=== PATIENT | male | born 1940 | race Caucasian/White ===

== ENCOUNTER 2017-04-07 20:27 | Inpatient (IN) | payer OTHER ==
[~2017-04-07] VITALS: Ht 180.3 cm; Wt 89.0 kg
[~2017-04-07 20:27] MED LIST: AMLO5TAB4 PO; ASPI81TA28 PO; LOSA50TA6 PO
[2017-04-07 21:50] LABS: BASO % 0.1 %; BASO ABS # 0.01 K/uL (0-0.2); COMPLETE YES; HEMATOCRIT 37.5 % (42-52); IG% 0.2 %; LYMPH % 7.1 %; LYMPH ABS # 0.72 K/uL (1.2-3.4); MEAN CELL VOLUME 93.1 fL (80-100); MEAN CORPUSCULAR HEMOGLOBIN 32.3 pg (25-34); MEAN CORPUSCULAR HGB CONC 34.7 g/dl (32-36); MEAN PLATELET VOLUME 10.2 fL (7.4-10.4); MONO % 4.5 %; NEUT % 88.1 %; PLATELET COUNT 136 K/uL (130-400); RED BLOOD COUNT 4.03 M/uL (4.7-6.1); WHITE BLOOD COUNT 10.15 K/uL (4.8-10.8)
[2017-04-07 21:57] LABS: ALT/SGPT 16 U/L (12-78); BLOOD UREA NITROGEN 11 mg/dl (7-18); BUN/CREATININE RATIO 9.5 (10-20); CALCIUM 8.9 mg/dl (8.5-10.1); CARBON DIOXIDE 25 mmol/L (21-32); CHLORIDE 104 mmol/L (98-107); GLUCOSE 185 mg/dl (70-99); POTASSIUM 3.9 mmol/L (3.5-5.1); SODIUM 135 mmol/L (136-145)
[2017-04-07 22:00] LABS: URINE APPEARANCE CLEAR (CLEAR); URINE BILIRUBIN NEG (NEG); URINE COLOR YELLOW; URINE NITRITE NEG (NEG); URINE SPECIFIC GRAVITY 1.017 (1.000-1.030); UROBILINOGEN NEG (NEG); ZZUR CULT IF INDIC CLEAN CATCH NO
[2017-04-07 22:00] LABS: ALKALINE PHOSPHATASE 52 U/L (45-117); AST/SGOT 10 U/L (15-37)
--- NOTE | 2017-04-07 22:00 | EMERGENCY ROOM VISIT NOTE ---
History Report prepared by Cori: Jose Quinonez Under the Supervision of: Dr. Juan Samuels M.D. First contact with patient: 21:49 Chief Complaint: ABDOMINAL PAIN Stated Complaint: STOMACH PAINS Nursing Triage Summary: Triage note: Patient c/o upper abdominal pain with radiation into ribs. States, "I think I have pancreatitis again." Associates nausea. Denies v/d. "Food doesn't appeal to me." Started last evening, went away but came back today. Left-sided pain under ribs and going into back, dull pain. History of Present Illness The patient is a 76 year old male with a history of pancreatitis who presents to the Emergency Room with complaints of waxing and waning abdominal pain that started yesterday afternoon. He says that the pain worsened before bed last night, and continued into this afternoon. The patient states that the pain has moderated a bit this evening. He notes that the pain is worsened a bit by movement and last night, it was worsened with deep breathing. The patient says that he has pain radiating into his back, and he has been nauseous as well. Currently, he says the back pain is worse than the abdominal pain. He has not had a bowel movement today, and he has had a limited appetite over the past day. The patient notes, "food doesn't appeal to me". He denies any headaches, chest pain, vomiting, fevers, chills, rashes, diarrhea, or recent falls or trauma. The patient says he drinks minimal alcohol. He notes that he has a hiatal hernia. Source of History: patient, family, spouse/significant other Onset: Yesterday afternoon Position: abdomen Timing: waxes/wanes Associated Symptoms: + nausea, + back pain, No fevers, No chills, No headache, No chest pain, No vomiting, No diarrhea, No rash Note: Associated symptoms: Decreased appetite. Denies recent falls or trauma. Review of Systems See HPI for pertinent positives & negatives. A total of 10 systems reviewed and were otherwise negative. Past Medical & Surgical Medical Problems: (1) Hypertension (2) Pancreatitis Old medical records were reviewed. Nurse's notes were reviewed and I agree with. Family History Family history omitted secondary to patient's advanced age. Social History Smoking Status: Never Smoker Alcohol Use: other (minimal) Marital Status: Housing Status: lives with family Occupation Status: retired Current/Historical Medications Scheduled Amlodipine Besylate (Norvasc), 10 MG PO DAILY Aspirin (Aspirin Ec), 81 MG PO DAILY Atorvastatin (Lipitor), 10 MG PO DAILY Losartan Potassium (Cozaar), 1 TAB PO DAILY Ranitidine Hcl (Zantac), 75 MG PO HS Allergies Coded Allergies: Ibuprofen (Verified Adverse Reaction, Unknown, GASTRIC BLEEDING WITH LARGE DOSES, 04/07/17) Physical Exam Vital Signs Date Time Temp Pulse Resp B/P (MAP) Pulse Ox O2 Delivery O2 Flow Rate FiO2 04/08/17 00:40 70 13 94 04/08/17 00:31 174/74 04/08/17 00:25 72 18 94 04/08/17 00:10 68 19 96 04/08/17 00:01 162/87 04/07/17 23:55 69 19 97 04/07/17 23:40 69 13 95 04/07/17 23:31 167/79 04/07/17 23:25 68 19 96 04/07/17 23:10 69 20 96 04/07/17 23:05 66 14 96 04/07/17 23:00 173/84 04/07/17 22:52 70 04/07/17 22:50 68 16 95 04/07/17 22:35 70 19 94 04/07/17 22:30 172/78 04/07/17 22:11 68 18 96 04/07/17 22:00 157/75 04/07/17 21:56 76 20 95 04/07/17 21:36 73 15 94 04/07/17 21:30 153/76 04/07/17 21:21 71 15 95 04/07/17 21:06 74 17 95 04/07/17 21:01 157/77 04/07/17 20:56 74 19 169/76 95 Room Air 04/07/17 20:39 37.0 81 18 111/73 94 Room Air Physical Exam General: Well developed well nourished non ill appearing older male in no acute distress, breathing comfortably on room air. Normal speech HEENT: Normal cephalic atraumatic. Pupils are equal round and reactive to light. Extraocular movements are intact. Oropharynx is pink with moist mucous membranes. No swelling of the mouth lips or tongue. Neck: Supple with a midline trachea. No meningeal signs or stiffness, no JVD or bruits. No Stridor. Chest: Clear to auscultation bilaterally. No wheezes or rhonchi. No increased work of breathing. Heart: regular rate and rhythm. Abdomen: Mildly tender in left upper abdomen. Soft, nondistended without rebound guarding or rigidity. Extremities: No cyanosis clubbing or edema. No calf tenderness or assymetry Spine/Back. Non tender to palpation. No CVA tenderness Skin: Good turgor without rashes. Neurologic exam: Cranial nerves two through 12 are intact. Motor and sensation are intact and symmetrical throughout. Medical Decision & Procedures ER Provider Diagnostic Interpretation: Radiology results as stated below per my review and radiologist interpretation: CT ANGIOGRAPHY OF THE CHEST, PULMONARY EMBOLUS PROTOCOL CLINICAL HISTORY: Left lower chest pain. COMPARISON STUDY: Chest CT August 22, 2013. TECHNIQUE: Following IV administration of 93 mL of Optiray-320, helical axial images of the chest were obtained utilizing the pulmonary embolus protocol. Maximal intensity projections and sagittal and coronal reformats were viewed on an independent 3D workstation. IV contrast was administered without complication. A dose lowering technique was utilized adhering to the principles of ALARA. FINDINGS: No pulmonary emboli are identified. The heart is mildly enlarged. There is extensive coronary artery calcification. There is no pericardial effusion. There is no evidence of thoracic aortic dissection. A small hiatal hernia is present. There is no consolidation to suggest pneumonia. No pneumothorax or pleural effusion is present. Mild peripancreatic infiltration represents acute pancreatitis. This is better depicted on the abdominal CT. IMPRESSION: 1. No pulmonary emboli identified. 2. No acute intrathoracic findings. 3. Mild peripancreatic infiltration consistent with acute pancreatitis which is better depicted on the CT of the abdomen and pelvis. 4. Mild cardiomegaly and extensive coronary artery calcification. Electronically signed by: Phong Wilson M.D. 04/07/2017 11:13 PM Dictated Date/Time: 04/07/2017 11:[address] OF THE ABDOMEN AND PELVIS WITH CONTRAST CLINICAL HISTORY: Left upper quadrant abdominal pain. COMPARISON STUDY: CT of the abdomen and pelvis June 30, 2010 and MRCP July 02, 2010. TECHNIQUE: Following IV administration of 93 mL of Optiray-320, axial images of the abdomen and pelvis were obtained from the lung bases to the proximal femurs. Images were reviewed in the axial, sagittal, and coronal planes. IV contrast was administered without complication. A dose lowering technique was utilized adhering to the principles of ALARA. CT DOSE: 818.51 mGy.cm FINDINGS: The chest will be reported separately. Several subcentimeter hepatic and renal lesions are too small to characterize but likely reflect cysts. These were present on prior study of June 30, 2010. The spleen and adrenal glands are normal. There is no biliary ductal dilatation status post cholecystectomy. There is mild peripancreatic infiltration. No evidence of glandular necrosis is identified. There are no peripancreatic fluid collections. The splenic vein is patent. No pseudoaneurysm is identified on this non-CTA exam. There is no evidence for a bowel obstruction. There is extensive sigmoid diverticulosis without evidence for acute diverticulitis. The prostate is surgically absent. There are no suspicious osseous lesions within visualized skeletal structures. IMPRESSION: 1. Mild peripancreatic infiltration consistent with acute pancreatitis. No peripancreatic fluid collections. No biliary ductal dilatation status post cholecystectomy. 2. Extensive sigmoid diverticulosis without evidence for acute diverticulitis. Electronically signed by: Phong Wilson M.D. 04/07/2017 11:19 PM Dictated Date/Time: 04/07/2017 11:14 PM Laboratory Results 04/07/17 21:15 Red Blood Count 4.03, Mean Corpuscular Volume 93.1, Mean Corpuscular Hemoglobin 32.3, Mean Corpuscular Hemoglobin Concent 34.7, Mean Platelet Volume 10.2, Neutrophils (%) (Auto) 88.1, Lymphocytes (%) (Auto) 7.1, Monocytes (%) (Auto) 4.5, Eosinophils (%) (Auto) 0.0, Basophils (%) (Auto) 0.1, Neutrophils # (Auto) 8.94, Lymphocytes # (Auto) 0.72, Monocytes # (Auto) 0.46, Eosinophils # (Auto) 0.00, Basophils # (Auto) 0.01 04/07/17 21:15 Test 04/07/17 20:58 04/07/17 21:15 04/08/17 00:14 Urine Color YELLOW Urine Appearance CLEAR (CLEAR) Urine pH 6.0 (4.5-7.5) Urine Specific [place] 1.017 (1.000-1.030) Urine Protein TRACE (NEG) Urine Glucose (UA) NEG (NEG) Urine Ketones NEG (NEG) Urine Occult Blood 2+ (NEG) Urine Nitrite NEG (NEG) Urine Bilirubin NEG (NEG) Urine Urobilinogen NEG (NEG) Urine Leukocyte Esterase NEG (NEG) Urine WBC (Auto) 0 /hpf (0-5) Urine RBC (Auto) 5-10 /hpf (0-4) Urine Hyaline Casts (Auto) 0 /lpf (0-5) Urine Epithelial Cells (Auto) 5-10 /lpf (0-5) Urine Bacteria (Auto) NEG (NEG) White Blood Count 10.15 K/uL (4.8-10.8) Red Blood Count 4.03 M/uL (4.7-6.1) Hemoglobin 13.0 g/dL (14.0-18.0) Hematocrit 37.5 % (42-52) Mean Corpuscular Volume 93.1 fL (80-100) Mean Corpuscular Hemoglobin 32.3 pg (25-34) Mean Corpuscular Hemoglobin Concent 34.7 g/dl (32-36) Platelet Count 136 K/uL (130-400) Mean Platelet Volume 10.2 fL (7.4-10.4) Neutrophils (%) (Auto) 88.1 % Lymphocytes (%) (Auto) 7.1 % Monocytes (%) (Auto) 4.5 % Eosinophils (%) (Auto) 0.0 % Basophils (%) (Auto) 0.1 % Neutrophils # (Auto) 8.94 K/uL (1.4-6.5) Lymphocytes # (Auto) 0.72 K/uL (1.2-3.4) Monocytes # (Auto) 0.46 K/uL (0.11-0.59) Eosinophils # (Auto) 0.00 K/uL (0-0.5) Basophils # (Auto) 0.01 K/uL (0-0.2) RDW Standard Deviation 44.8 fL (36.4-46.3) RDW Coefficient of Variation 13.1 % (11.5-14.5) Immature Granulocyte % (Auto) 0.2 % Immature Granulocyte # (Auto) 0.02 K/uL (0.00-0.02) Anion Gap 6.0 mmol/L (3-11) Est Creatinine Clear Calc Drug Dose 60.5 ml/min Estimated GFR () 67.7 Estimated GFR (Non- 58.4 BUN/Creatinine Ratio 9.5 (10-20) Calcium Level 8.9 mg/dl (8.5-10.1) Total Bilirubin 0.8 mg/dl (0.2-1) Aspartate Amino Transf (AST/SGOT) 10 U/L (15-37) Alanine Aminotransferase (ALT/SGPT) 16 U/L (12-78) Alkaline Phosphatase 52 U/L (45-117) Troponin I < 0.015 ng/ml (0-0.045) Total Protein 7.5 gm/dl (6.4-8.2) Albumin 3.7 gm/dl (3.4-5.0) Globulin 3.8 gm/dl (2.5-4.0) Albumin/Globulin Ratio 1.0 (0.9-2) Lipase 247 U/L (73-393) Laboratory studies as stated above per my review. Medications Administered Medications (Trade) Dose Ordered Sig/Madai Route Start Time Stop Time Status Last Admin Dose Admin Sodium Chloride 1,000 ml @ 999 mls/hr Q1H1M STAT IV 04/07/17 23:57 04/08/17 00:57 04/08/17 00:10 999 MLS/HR Sodium Chloride 1,000 ml @ 150 mls/hr Q6H40M ONCE IV 04/07/17 23:57 04/08/17 06:36 04/08/17 00:11 150 MLS/HR Ondansetron HCl (Zofran Inj) 4 mg NOW STAT IV 04/08/17 00:40 04/08/17 00:41 DC 04/08/17 00:48 4 MG Morphine Sulfate (MoRPHine SULFATE INJ) 2 mg NOW STAT IV 04/08/17 00:40 04/08/17 00:41 DC 04/08/17 00:51 2 MG ECG Indication: abdominal pain Rate (beats per minute): 76 Rhythm: normal sinus Findings: 1st degree AV block, no acute ischemic change Comparison ECG Date: compared to June 21 2015, PAC now absent ED Course 2150: Past medical records reviewed. The patient was evaluated in room B7, and a complete history and physical examination were performed. 5: Upon reevaluation, the patient is restin. I discussed the results and treatment plan with the patient. He verbalized agreement of the treatment plan. The patient will be evaluated for further management. 7: Ordered NSS 1000 ml @ 150 mls/hr IV, NSS 1000 ml @ 999 mls/hr IV. 0002: I discussed the patient with Dr. Jessica Duran hematology nurse educator - he will evaluate the patient for further treatment. Medical Decision Differentials include, but are not limited to; shingles, aneurysm, splenic disease, PE, musculoskeletal, kidney disease, colitis. This patient comes in as described above. He was placed on a monitor technician in room B7. He's had been having abdominal pain mostly in the epigastric area towards the left. He has had no trauma. He did have a history of pancreatitis many years ago thought related to gallstones. He is feeling better than he did earlier. It hurts when he breathes. It does go to his back at times. IV access established was given 1 L IV normal saline bolus 150 mL an hour I have V normal saline. He was kept nothing by mouth while in the ER. He has no elevation of white count or fever to suggest infection. He has no significant anemia. He has no acute electrolyte or metabolic abnormalities. His liver functions are normal as his lipase. His CAT scan however does show findings is a with acute pancreatitis. The CAT scan of his chest shows no PE or other abnormalities. There are no other significant abnormality seen on his CAT scan to explain his symptoms. I do think he needs to be admitted for pain management IV hydration and bowel rest. He was given morphine 2 mg IV and Zofran 4 mg IV in the emergency department. I consulted Dr. Peterson to see the patient in the emergency department for further treatment and evaluation. Medication Reconcilliation Current Medication List: was personally reviewed by me Blood Pressure Screening Patient's blood pressure: Normal blood pressure Consults Time Called: 0000 Consulting Physician: Dr. Jessica Duran hematology nurse educator Returned Call: [phone] I discussed the patient with Dr. Jessica Duran hematology nurse educator - he will evaluate the patient for further treatment. Impression Primary Impression: Pancreatitis Additional Impression: Left upper quadrant pain Scribe Attestation The scribe's documentation has been prepared under my direction and personally reviewed by me in its entirety. I confirm that the note above accurately reflects all work, treatment, procedures, and medical decision making performed by me. Departure Information Dispostion Being Evaluated By Hospitalist Prieto Leung MD (PCP) Patient Instructions My [facility] Problem Qualifiers
[2017-04-07 22:01] LABS: MANUAL MICROSCOPIC REQUIRED? NO; REVIEW REQ? NO
[2017-04-07] MEDS ORDERED: OPTIRAY 320 IV PRN (22:30)
[2017-04-07] MEDS ORDERED: ATOR10TA88 PO (22:56)
[2017-04-07] MEDS ORDERED: RANITAB33 PO (22:56)
--- NOTE | 2017-04-07 23:15 | DIAGNOSTIC IMAGING REPORT ---
CT ANGIOGRAPHY OF THE CHEST, PULMONARY EMBOLUS PROTOCOL CLINICAL HISTORY: Left lower chest pain. COMPARISON STUDY: Chest CT August 22, 2013. TECHNIQUE: Following IV administration of 93 mL of Optiray-320, helical axial images of the chest were obtained utilizing the pulmonary embolus protocol. Maximal intensity projections and sagittal and coronal reformats were viewed on an independent 3D workstation. IV contrast was administered without complication. A dose lowering technique was utilized adhering to the principles of ALARA. FINDINGS: No pulmonary emboli are identified. The heart is mildly enlarged. There is extensive coronary artery calcification. There is no pericardial effusion. There is no evidence of thoracic aortic dissection. A small hiatal hernia is present. There is no consolidation to suggest pneumonia. No pneumothorax or pleural effusion is present. Mild peripancreatic infiltration represents acute pancreatitis. This is better depicted on the abdominal CT. IMPRESSION: 1. No pulmonary emboli identified. 2. No acute intrathoracic findings. 3. Mild peripancreatic infiltration consistent with acute pancreatitis which is better depicted on the CT of the abdomen and pelvis. 4. Mild cardiomegaly and extensive coronary artery calcification. Electronically signed by: Phong Wilson M.D. 04/07/2017 11:13 PM Dictated Date/Time: 04/07/2017 11:06 PM
--- NOTE | 2017-04-07 23:21 | DIAGNOSTIC IMAGING REPORT ---
CT OF THE ABDOMEN AND PELVIS WITH CONTRAST CLINICAL HISTORY: Left upper quadrant abdominal pain. COMPARISON STUDY: CT of the abdomen and pelvis June 30, 2010 and MRCP July 02, 2010. TECHNIQUE: Following IV administration of 93 mL of Optiray-320, axial images of the abdomen and pelvis were obtained from the lung bases to the proximal femurs. Images were reviewed in the axial, sagittal, and coronal planes. IV contrast was administered without complication. A dose lowering technique was utilized adhering to the principles of ALARA. CT DOSE: 818.51 mGy.cm FINDINGS: The chest will be reported separately. Several subcentimeter hepatic and renal lesions are too small to characterize but likely reflect cysts. These were present on prior study of June 30, 2010. The spleen and adrenal glands are normal. There is no biliary ductal dilatation status post cholecystectomy. There is mild peripancreatic infiltration. No evidence of glandular necrosis is identified. There are no peripancreatic fluid collections. The splenic vein is patent. No pseudoaneurysm is identified on this non-CTA exam. There is no evidence for a bowel obstruction. There is extensive sigmoid diverticulosis without evidence for acute diverticulitis. The prostate is surgically absent. There are no suspicious osseous lesions within visualized skeletal structures. IMPRESSION: 1. Mild peripancreatic infiltration consistent with acute pancreatitis. No peripancreatic fluid collections. No biliary ductal dilatation status post cholecystectomy. 2. Extensive sigmoid diverticulosis without evidence for acute diverticulitis. Electronically signed by: Phong Wilson M.D. 04/07/2017 11:19 PM Dictated Date/Time: 04/07/2017 11:14 PM
[2017-04-07] MEDS ORDERED: SODIUM CHLORIDE 0.9% 1000ML 1,000 ML IV STA (23:57)
[2017-04-07] MEDS ORDERED: SODIUM CHLORIDE 0.9% 1000ML 1,000 ML IV ONE (23:57)
[2017-04-08] MEDS ORDERED: MoRPHine SULFATE 2 MG/ML CARP IV STA (00:40)
[2017-04-08] MEDS ORDERED: ONDANSETRON INJ 2 MG/ML 2 ML VIAL IV STA (00:40)
[2017-04-08] MEDS ORDERED: TRAMADOL HCL 50 MG TAB PO PRN ×2 (00:45→12:45)
[2017-04-08] MEDS ORDERED: MoRPHine SULFATE 4 MG/ML 1 ML CARP\\VIAL IV PRN (00:45)
[2017-04-08] MEDS ORDERED: LACTATED RINGER'S 1000ML 1,000 ML IV ONE (00:45)
[2017-04-08] MEDS ORDERED: ACETAMINOPHEN 325 MG TAB PO PRN (00:45)
[2017-04-08] MEDS ORDERED: ONDANSETRON INJ 2 MG/ML 2 ML VIAL IV PRN (00:45)
--- NOTE | 2017-04-08 00:47 | History and Physical ---
History & Physical Date & Time of Service: Apr 08, 2017 at 00:47 Chief Complaint: Stomach Pains Primary Care Physician: Prieto Weiner MD History of Present Illness Source: patient, clinic records, hospital records In 2009 patient confinement for biliary pancreatitis. The patient underwent cholecystectomy 2 months later. Recent confinement 2012 for chest pain. Workup negative for ischemia. 2 nights ago patient developed achy epigastric pain going to the left back and shoulders after fatty food intake. Discomfort somewhat similar to pancreatitis episode in the past although first episode was more severe and mainly on the right side. Some nausea no emesis. Pain waxing waning. No fever no chills. Patient brought to the emergency room by family because of persistent discomfort. 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) Immunizations History of Influenza Vaccine: Yes Influenza Vaccine Date: Aug 02, 2013 History of Tetanus Vaccine?: Yes History of Pneumococcal: Yes History of Hepatitis B Vaccine: No Multi-Drug Resistant Organisms History of MDRO: No Allergies Coded Allergies: Ibuprofen (Verified Adverse Reaction, Unknown, GASTRIC BLEEDING WITH LARGE DOSES, 04/07/17) Home Medications Scheduled Amlodipine Besylate (Norvasc), 10 MG PO DAILY Aspirin (Aspirin Ec), 81 MG PO DAILY Atorvastatin (Lipitor), 10 MG PO DAILY Losartan Potassium (Cozaar), 1 TAB PO DAILY Ranitidine Hcl (Zantac), 75 MG PO HS Review of Systems As per history of present illness, all other ROS negative. Physical Exam Vital Signs Date Time Temp Pulse Resp B/P (MAP) Pulse Ox O2 Delivery O2 Flow Rate FiO2 04/07/17 23:05 66 14 96 04/07/17 23:00 173/84 04/07/17 22:52 70 04/07/17 22:50 68 16 95 04/07/17 22:35 70 19 94 04/07/17 22:30 172/78 04/07/17 22:11 68 18 96 04/07/17 22:00 157/75 04/07/17 21:56 76 20 95 04/07/17 21:36 73 15 94 04/07/17 21:30 153/76 04/07/17 21:21 71 15 95 04/07/17 21:06 74 17 95 04/07/17 21:01 157/77 04/07/17 20:56 74 19 169/76 95 Room Air 04/07/17 20:39 37.0 81 18 111/73 94 Room Air General Appearance: + pertinent finding (slightly anxious, no respiratory distress) Head: normocephalic, + pertinent finding (old lip symmetry on talking) Eyes: + pertinent finding (pale palpebral conjunctivae, dry buccal mucosa) Neck: supple Respiratory/Chest: lungs clear Cardiovascular: regular rate, rhythm, + systolic murmur Abdomen/GI: + pertinent finding (minimal epigastric tenderness) Extremities/Musculoskelatal: non-tender Neurologic/Psych: alert Skin: + pallor Diagnostics Laboratory Results Results Past 24 Hours Test 04/07/17 20:58 04/07/17 21:15 04/08/17 00:14 Range/Units Urine Color YELLOW Urine Appearance CLEAR CLEAR Urine pH 6.0 4.5-7.5 Urine Specific [place] 1.017 1.000-1.030 Urine Protein TRACE NEG Urine Glucose (UA) NEG NEG Urine Ketones NEG NEG Urine Occult Blood 2+ NEG Urine Nitrite NEG NEG Urine Bilirubin NEG NEG Urine Urobilinogen NEG NEG Urine Leukocyte Esterase NEG NEG Urine WBC (Auto) 0 0-5 /hpf Urine RBC (Auto) 5-10 0-4 /hpf Urine Hyaline Casts (Auto) 0 0-5 /lpf Urine Epithelial Cells (Auto) 5-10 0-5 /lpf Urine Bacteria (Auto) NEG NEG White Blood Count 10.15 4.8-10.8 K/uL Red Blood Count 4.03 4.7-6.1 M/uL Hemoglobin 13.0 14.0-18.0 g/dL Hematocrit 37.5 42-52 % Mean Corpuscular Volume 93.1 80-100 fL Mean Corpuscular Hemoglobin 32.3 25-34 pg Mean Corpuscular Hemoglobin Concent 34.7 32-36 g/dl Platelet Count 136 130-400 K/uL Mean Platelet Volume 10.2 7.4-10.4 fL Neutrophils (%) (Auto) 88.1 % Lymphocytes (%) (Auto) 7.1 % Monocytes (%) (Auto) 4.5 % Eosinophils (%) (Auto) 0.0 % Basophils (%) (Auto) 0.1 % Neutrophils # (Auto) 8.94 1.4-6.5 K/uL Lymphocytes # (Auto) 0.72 1.2-3.4 K/uL Monocytes # (Auto) 0.46 0.11-0.59 K/uL Eosinophils # (Auto) 0.00 0-0.5 K/uL Basophils # (Auto) 0.01 0-0.2 K/uL RDW Standard Deviation 44.8 36.4-46.3 fL RDW Coefficient of Variation 13.1 11.5-14.5 % Immature Granulocyte % (Auto) 0.2 % Immature Granulocyte # (Auto) 0.02 0.00-0.02 K/uL Sodium Level 135 136-145 mmol/L Potassium Level 3.9 3.5-5.1 mmol/L Chloride Level 104 98-107 mmol/L Carbon Dioxide Level 25 21-32 mmol/L Anion Gap 6.0 3-11 mmol/L Blood Urea Nitrogen 11 7-18 mg/dl Creatinine 1.20 0.60-1.40 mg/dl Est Creatinine Clear Calc Drug Dose 60.5 ml/min Estimated GFR () 67.7 Estimated GFR (Non- 58.4 BUN/Creatinine Ratio 9.5 10-20 Random Glucose 185 70-99 mg/dl Calcium Level 8.9 8.5-10.1 mg/dl Magnesium Level 2.0 1.8-2.4 mg/dl Total Bilirubin 0.8 0.2-1 mg/dl Aspartate Amino Transf (AST/SGOT) 10 15-37 U/L Alanine Aminotransferase (ALT/SGPT) 16 12-78 U/L Alkaline Phosphatase 52 45-117 U/L Troponin I < 0.015 0-0.045 ng/ml Total Protein 7.5 6.4-8.2 gm/dl Albumin 3.7 3.4-5.0 gm/dl Globulin 3.8 2.5-4.0 gm/dl Albumin/Globulin Ratio 1.0 0.9-2 Lipase 247 73-393 U/L Diagnostic Radiology CT OF THE ABDOMEN AND PELVIS WITH CONTRAST CLINICAL HISTORY: Left upper quadrant abdominal pain. COMPARISON STUDY: CT of the abdomen and pelvis June 30, 2010 and MRCP July 02, 2010. TECHNIQUE: Following IV administration of 93 mL of Optiray-320, axial images of the abdomen and pelvis were obtained from the lung bases to the proximal femurs. Images were reviewed in the axial, sagittal, and coronal planes. IV contrast was administered without complication. A dose lowering technique was utilized adhering to the principles of ALARA. CT DOSE: 818.51 mGy.cm FINDINGS: The chest will be reported separately. Several subcentimeter hepatic and renal lesions are too small to characterize but likely reflect cysts. These were present on prior study of June 30, 2010. The spleen and adrenal glands are normal. There is no biliary ductal dilatation status post cholecystectomy. There is mild peripancreatic infiltration. No evidence of glandular necrosis is identified. There are no peripancreatic fluid collections. The splenic vein is patent. No pseudoaneurysm is identified on this non-CTA exam. There is no evidence for a bowel obstruction. There is extensive sigmoid diverticulosis without evidence for acute diverticulitis. The prostate is surgically absent. There are no suspicious osseous lesions within visualized skeletal structures. IMPRESSION: 1. Mild peripancreatic infiltration consistent with acute pancreatitis. No peripancreatic fluid collections. No biliary ductal dilatation status post cholecystectomy. 2. Extensive sigmoid diverticulosis without evidence for acute diverticulitis. Impression Assessment and Plan AP Recurrent pancreatitis History of biliary pancreatitis status post cholecystectomy Current episode likely precipitated by fatty food intake from a few nights ago Hypertension elevated secondary to pain Hyperlipidemia on statin therapy History atrioseptal aneurysm, aortic stenosis as per records Prostate cancer sp radiation Past tobacco abuse Hyperglycemia rule out diabetes GMF Analgesia, IV fluids Clear liquids for now Check hemoglobin A1c Home in a.m. if patient comfortable and diet tolerated DVT prophylaxis. Lovenox subcutaneous Full code VTE Prophylaxis VTE Risk Assessment Done? Y/N: Yes Risk Level: Moderate
[2017-04-08 02:42] VITALS: Ht 180.3 cm; Wt 89.0 kg
[2017-04-08 03:00] VITALS: O2SAT 96
[2017-04-08] MEDS ORDERED: LOSARTAN POTASSIUM 50 MG TAB PO ONE (03:15)
[2017-04-08 06:06] LABS: BASO % 0.1 %; BASO ABS # 0.01 K/uL (0-0.2); COMPLETE YES; EOS % 0.2 %; HEMATOCRIT 36.9 % (42-52); IG% 0.2 %; LYMPH % 6.1 %; LYMPH ABS # 0.58 K/uL (1.2-3.4); MEAN CELL VOLUME 92.3 fL (80-100); MEAN CORPUSCULAR HEMOGLOBIN 31.5 pg (25-34); MEAN CORPUSCULAR HGB CONC 34.1 g/dl (32-36); MEAN PLATELET VOLUME 9.5 fL (7.4-10.4); MONO % 10.8 %; NEUT % 82.6 %; PLATELET COUNT 133 K/uL (130-400); WHITE BLOOD COUNT 9.57 K/uL (4.8-10.8)
[2017-04-08 06:32] LABS: PARTIAL THROMBOPLASTIN RATIO 1.1; PROTHROMBIN TIME (PATIENT) 10.7 SECONDS (9.0-12.0)
[2017-04-08 06:42] LABS: BUN/CREATININE RATIO 9.6 (10-20); CALCIUM 8.5 mg/dl (8.5-10.1); CREATININE 0.89 mg/dl (0.60-1.40)
[2017-04-08 07:16] LABS: ESTIMATED AVERAGE GLUCOSE 114 mg/dl; HA1C FLAG Normal (Normal)
[2017-04-08] MEDS: ENOXAPARIN 40 MG/0.4 ML SYR SQ SCH (07:47)
[2017-04-08 07:52] VITALS: BP_SYST 170; BP_SYST 181; BP_SYST 184; BP_DIAS 79; BP_DIAS 81; BP_DIAS 84; PULSE 61; TEMP 37.1; O2SAT 94
[2017-04-08] MEDS ORDERED: ATORVASTATIN 10 MG TAB PO SCH ×2 (08:00→17:00)
[2017-04-08] MEDS ORDERED: AMLODIPINE BESYLATE 5 MG TAB PO ONE (08:00)
[2017-04-08] MEDS ORDERED: NURSING DECISION MEDICATION ORDER SCH ×2 (08:00→08:45)
[2017-04-08] MEDS: ASPIRIN 81 MG ECTAB PO SCH (08:35)
[2017-04-08] MEDS ORDERED: BISACODYL 5 MG TABEC PO ONE (12:30)
[2017-04-08] MEDS ORDERED: MoRPHine SULFATE 2 MG/ML CARP IV PRN (12:45)
[2017-04-08 12:52] VITALS: BP 172/75
[2017-04-08] MEDS ORDERED: NURSING VERBAL MED ORDER ONE (15:00)
[2017-04-08 15:30] VITALS: BP 161/72; PULSE 65; TEMP 36.9; O2SAT 94
[2017-04-08 16:00] VITALS: O2SAT 94
[2017-04-08] MEDS: LACTATED RINGER'S 1000ML 1,000 ML IV SCH (16:39)
[2017-04-08] MEDS ORDERED: LOSARTAN POTASSIUM 50 MG TAB PO SCH (17:00)
--- NOTE | 2017-04-08 17:35 | Progress Note ---
Subjective Date of Service: Apr 08, 2017. Subjective Pt evaluation today including: conversation w/ patient, physical exam, lab review, review of studies, review of inpatient medication list Saw/examined the patient in room 401 +lack of appetite improving abdominal pain Problem List Medical Problems: (1) Abdominal pain Status: Acute (2) Left upper quadrant pain Status: Acute (3) Pancreatitis Status: Acute Review of Systems Constitutional: + problem reported (decreased PO intake), No fever, No chills, No weakness Respiratory: No cough, No sputum, No shortness of breath Cardiac: No chest pain, No edema, No palpitations Abdomen: + pain, No nausea, No vomiting, No diarrhea, No constipation, No GI bleeding Male : No dysuria, No urinary frequency Medications Current Inpatient Medications Medications (Trade) Dose Ordered Sig/Madai Route Start Time Stop Time Status Last Admin Dose Admin Ioversol (Optiray 320) 93 ml UD PRN IV 04/07/17 22:30 04/11/17 22:29 Enoxaparin Sodium (Lovenox Inj) 40 mg Q24H SQ 04/08/17 08:00 05/08/17 07:59 04/08/17 07:47 40 MG Acetaminophen (Tylenol Tab) 650 mg Q4H PRN PO 04/08/17 00:45 05/08/17 00:44 Ranitidine HCl (zANTac TAB) 75 mg HS PO 04/08/17 21:00 05/08/17 20:59 Ondansetron HCl (Zofran Inj) 4 mg Q6H PRN IV 04/08/17 00:45 05/08/17 00:44 Aspirin (Ecotrin Tab) 81 mg QAM PO 04/08/17 08:00 05/08/17 07:59 04/08/17 08:35 81 MG Atorvastatin Calcium (Lipitor Tab) 10 mg QDD PO 04/08/17 17:00 05/08/17 16:59 Losartan Potassium (coZAAR TAB) 50 mg QDD PO 04/08/17 17:00 05/08/17 16:59 Morphine Sulfate (MoRPHine SULFATE INJ) 2 mg Q3H PRN IV 04/08/17 12:45 04/22/17 00:44 Tramadol HCl (Ultram Tab) 50 mg Q6H PRN PO 04/08/17 12:45 05/08/17 00:44 04/08/17 12:50 50 MG Docusate Sodium (coLACE CAP) 100 mg BID PO 04/08/17 20:00 05/08/17 19:59 Lactated Ringer's 1,000 ml @ 75 mls/hr [id number] IV 04/08/17 15:00 05/08/17 14:59 04/08/17 16:39 75 MLS/HR Objective Vital Signs Date Time Temp Pulse Resp B/P (MAP) Pulse Ox O2 Delivery O2 Flow Rate FiO2 04/08/17 16:00 94 Room Air 04/08/17 15:30 36.9 65 18 161/72 (101) 94 Room Air 04/08/17 12:52 172/75 (107) 04/08/17 08:00 Room Air 04/08/17 07:52 37.1 61 18 181/84 (116) 94 Room Air 170/79 (109) 04/08/17 07:52 184/81 (115) 04/08/17 03:00 96 Nasal Cannula 2.0 04/08/17 02:42 Nasal Cannula 2.0 04/08/17 02:05 68 21 96 04/08/17 02:00 176/74 04/08/17 01:50 95 Nasal Cannula 2.0 04/08/17 01:50 86 19 95 04/08/17 01:45 96 24 04/08/17 01:30 69 23 153/70 89 Room Air 04/08/17 01:15 68 19 89 04/08/17 01:01 150/71 04/08/17 01:00 68 14 93 04/08/17 00:45 70 23 95 04/08/17 00:40 70 13 94 04/08/17 00:31 174/74 04/08/17 00:25 72 18 94 04/08/17 00:10 68 19 96 04/08/17 00:01 162/87 04/07/17 23:55 69 19 97 04/07/17 23:40 69 13 95 04/07/17 23:31 167/79 04/07/17 23:25 68 19 96 04/07/17 23:10 69 20 96 04/07/17 23:05 66 14 96 04/07/17 23:00 173/84 04/07/17 22:52 70 04/07/17 22:50 68 16 95 04/07/17 22:35 70 19 94 04/07/17 22:30 172/78 04/07/17 22:11 68 18 96 04/07/17 22:00 157/75 04/07/17 21:56 76 20 95 04/07/17 21:36 73 15 94 04/07/17 21:30 153/76 04/07/17 21:21 71 15 95 04/07/17 21:06 74 17 95 04/07/17 21:01 157/77 04/07/17 20:56 74 19 169/76 95 Room Air 04/07/17 20:39 37.0 81 18 111/73 94 Room Air Physical Exam General Appearance: no apparent distress Respiratory/Chest: chest non-tender, lungs clear, normal breath sounds, no respiratory distress, no accessory muscle use Cardiovascular: regular rate, rhythm, no edema, no murmur Abdomen: soft, + tenderness (non-distended, tender at the epigastric region) Extremities: normal inspection, no pedal edema Neurologic/Psychiatric: no motor/sensory deficits, alert, normal mood/affect Skin: normal color Laboratory Results Last 24 Hours Test 04/07/17 20:58 04/07/17 21:15 04/08/17 05:45 Urine Color YELLOW Urine Appearance CLEAR Urine pH 6.0 Urine Specific [place] 1.017 Urine Protein TRACE Urine Glucose (UA) NEG Urine Ketones NEG Urine Occult Blood 2+ Urine Nitrite NEG Urine Bilirubin NEG Urine Urobilinogen NEG Urine Leukocyte Esterase NEG Urine WBC (Auto) 0 /hpf Urine RBC (Auto) 5-10 /hpf Urine Hyaline Casts (Auto) 0 /lpf Urine Epithelial Cells (Auto) 5-10 /lpf Urine Bacteria (Auto) NEG White Blood Count 10.15 K/uL 9.57 K/uL Red Blood Count 4.03 M/uL 4.00 M/uL Hemoglobin 13.0 g/dL 12.6 g/dL Hematocrit 37.5 % 36.9 % Mean Corpuscular Volume 93.1 fL 92.3 fL Mean Corpuscular Hemoglobin 32.3 pg 31.5 pg Mean Corpuscular Hemoglobin Concent 34.7 g/dl 34.1 g/dl Platelet Count 136 K/uL 133 K/uL Mean Platelet Volume 10.2 fL 9.5 fL Neutrophils (%) (Auto) 88.1 % 82.6 % Lymphocytes (%) (Auto) 7.1 % 6.1 % Monocytes (%) (Auto) 4.5 % 10.8 % Eosinophils (%) (Auto) 0.0 % 0.2 % Basophils (%) (Auto) 0.1 % 0.1 % Neutrophils # (Auto) 8.94 K/uL 7.91 K/uL Lymphocytes # (Auto) 0.72 K/uL 0.58 K/uL Monocytes # (Auto) 0.46 K/uL 1.03 K/uL Eosinophils # (Auto) 0.00 K/uL 0.02 K/uL Basophils # (Auto) 0.01 K/uL 0.01 K/uL RDW Standard Deviation 44.8 fL 44.0 fL RDW Coefficient of Variation 13.1 % 13.0 % Immature Granulocyte % (Auto) 0.2 % 0.2 % Immature Granulocyte # (Auto) 0.02 K/uL 0.02 K/uL Sodium Level 135 mmol/L 140 mmol/L Potassium Level 3.9 mmol/L 4.0 mmol/L Chloride Level 104 mmol/L 109 mmol/L Carbon Dioxide Level 25 mmol/L 25 mmol/L Anion Gap 6.0 mmol/L 6.0 mmol/L Blood Urea Nitrogen 11 mg/dl 9 mg/dl Creatinine 1.20 mg/dl 0.89 mg/dl Est Creatinine Clear Calc Drug Dose 60.5 ml/min 75.2 ml/min Estimated GFR () 67.7 96.3 Estimated GFR (Non- 58.4 83.1 BUN/Creatinine Ratio 9.5 9.6 Random Glucose 185 mg/dl 130 mg/dl Estimated Average Glucose 114 mg/dl Hemoglobin A1c 5.6 % Calcium Level 8.9 mg/dl 8.5 mg/dl Magnesium Level 2.0 mg/dl Total Bilirubin 0.8 mg/dl Aspartate Amino Transf (AST/SGOT) 10 U/L Alanine Aminotransferase (ALT/SGPT) 16 U/L Alkaline Phosphatase 52 U/L Troponin I < 0.015 ng/ml Total Protein 7.5 gm/dl Albumin 3.7 gm/dl Globulin 3.8 gm/dl Albumin/Globulin Ratio 1.0 Lipase 247 U/L Prothrombin Time 10.7 SECONDS Prothromb Time International Ratio 1.0 Activated Partial Thromboplast Time 28.0 SECONDS Partial Thromboplastin Ratio 1.1 Assessment and Plan This is a 76 year old male with a PMH of HTN, HLD, hx. of prostate CA, hx. of pancreatitis secondary to gallstones s/p cholecystectomy - presents with epigastric abdominal pain radiating to the back - found to have acute pancreatitis Acute Pancreatitis unsure of etiology; has a hx. of this issue due to gallstones s/p cholecystectomy lipase is not elevated will start on clears - continue for today continue lactated ringer's advance in AM (04/09) if pain controlled and tolerating PO diet - can d/c home on 04/09 HTN continue home medications DVT ppx Lovenox FULL CODE
[2017-04-08] MEDS: DOCUSATE SODIUM 100 MG CAP PO SCH (19:32)
[2017-04-08] MEDS ORDERED: RANITIDINE HCL 150 MG TAB PO SCH (21:00)
[2017-04-08 23:50] VITALS: BP 167/84; PULSE 63; TEMP 37.2; O2SAT 93
[2017-04-09] MEDS: LACTATED RINGER'S 1000ML 1,000 ML IV SCH (04:23)
[2017-04-09 06:03] LABS: BUN/CREATININE RATIO 7.6 (10-20); CREATININE 0.98 mg/dl (0.60-1.40); POTASSIUM 3.9 mmol/L (3.5-5.1)
[2017-04-09 07:20] VITALS: BP 167/79; PULSE 66; TEMP 36.4; O2SAT 95
[2017-04-09] MEDS ORDERED: LOSARTAN POTASSIUM 50 MG TAB PO SCH (08:00)
[2017-04-09] MEDS: ASPIRIN 81 MG ECTAB PO SCH (08:31)
[2017-04-09] MEDS: DOCUSATE SODIUM 100 MG CAP PO SCH (08:33)
[2017-04-09] MEDS: ENOXAPARIN 40 MG/0.4 ML SYR SQ SCH (08:34)
[2017-04-09] MEDS ORDERED: AMLODIPINE BESYLATE 5 MG TAB PO STA (09:10)
[2017-04-09] MEDS ORDERED: LOSARTAN POTASSIUM 25 MG TAB PO STA (11:29)
[2017-04-09] MEDS ORDERED: SENNA 8.6 MG TAB PO SCH (12:00)
[2017-04-09 12:17] VITALS: BP 178/84
--- NOTE | 2017-04-09 12:23 | Progress Note ---
Subjective Date of Service: Apr 09, 2017. Subjective Pt evaluation today including: conversation w/ patient, conversation w/ family , physical exam, lab review, review of studies, review of inpatient medication list Saw/examined the patient in room 401 Pain is improved in the abdomen Nausea resolved tolerated clear liquid for breakfast Problem List Medical Problems: (1) Abdominal pain Status: Acute (2) Left upper quadrant pain Status: Acute (3) Pancreatitis Status: Acute Review of Systems Constitutional: No fever, No chills Respiratory: No shortness of breath Cardiac: No chest pain Abdomen: No pain, No nausea, No vomiting, No diarrhea, No constipation, No GI bleeding Medications Current Inpatient Medications Medications (Trade) Dose Ordered Sig/Madai Route Start Time Stop Time Status Last Admin Dose Admin Ioversol (Optiray 320) 93 ml UD PRN IV 04/07/17 22:30 04/11/17 22:29 Enoxaparin Sodium (Lovenox Inj) 40 mg Q24H SQ 04/08/17 08:00 05/08/17 07:59 04/09/17 08:34 40 MG Acetaminophen (Tylenol Tab) 650 mg Q4H PRN PO 04/08/17 00:45 05/08/17 00:44 Ranitidine HCl (zANTac TAB) 75 mg HS PO 04/08/17 21:00 05/08/17 20:59 04/08/17 19:32 75 MG Ondansetron HCl (Zofran Inj) 4 mg Q6H PRN IV 04/08/17 00:45 05/08/17 00:44 Aspirin (Ecotrin Tab) 81 mg QAM PO 04/08/17 08:00 05/08/17 07:59 04/09/17 08:31 81 MG Atorvastatin Calcium (Lipitor Tab) 10 mg QDD PO 04/08/17 17:00 05/08/17 16:59 04/08/17 17:37 10 MG Losartan Potassium (coZAAR TAB) 50 mg QDD PO 04/08/17 17:00 05/08/17 16:59 04/08/17 17:37 50 MG Morphine Sulfate (MoRPHine SULFATE INJ) 2 mg Q3H PRN IV 04/08/17 12:45 04/22/17 00:44 Tramadol HCl (Ultram Tab) 50 mg Q6H PRN PO 04/08/17 12:45 05/08/17 00:44 04/08/17 12:50 50 MG Docusate Sodium (coLACE CAP) 100 mg BID PO 04/08/17 20:00 05/08/17 19:59 04/09/17 08:33 100 MG Lactated Ringer's 1,000 ml @ 75 mls/hr [id number] IV 04/08/17 15:00 05/08/17 14:59 04/09/17 04:23 75 MLS/HR Amlodipine Besylate (Norvasc Tab) 10 mg QAM PO 04/10/17 08:00 05/10/17 07:59 Senna (Senokot Tab) 8.6 mg QAM PO 04/09/17 12:00 05/09/17 11:59 04/09/17 12:16 8.6 MG Objective Vital Signs Date Time Temp Pulse Resp B/P (MAP) Pulse Ox O2 Delivery O2 Flow Rate FiO2 04/09/17 12:17 178/84 (115) 04/09/17 08:40 Room Air 04/09/17 07:20 36.4 66 18 167/79 (108) 95 Room Air 04/09/17 00:00 Room Air 04/08/17 23:50 37.2 63 20 167/84 (111) 93 Room Air 04/08/17 16:00 94 Room Air 04/08/17 15:30 36.9 65 18 161/72 (101) 94 Room Air 04/08/17 12:52 172/75 (107) Physical Exam General Appearance: no apparent distress Respiratory/Chest: lungs clear, normal breath sounds, no respiratory distress, no accessory muscle use Cardiovascular: regular rate, rhythm, no edema, no murmur Abdomen: normal bowel sounds, soft, + tenderness (mildly tender at epigastric region) Extremities: normal inspection, no pedal edema Neurologic/Psychiatric: no motor/sensory deficits, alert, normal mood/affect Laboratory Results Last 24 Hours Test 04/09/17 05:17 Sodium Level 138 mmol/L Potassium Level 3.9 mmol/L Chloride Level 104 mmol/L Carbon Dioxide Level 29 mmol/L Anion Gap 5.0 mmol/L Blood Urea Nitrogen 7 mg/dl Creatinine 0.98 mg/dl Est Creatinine Clear Calc Drug Dose 68.3 ml/min Estimated GFR () 86.5 Estimated GFR (Non- 74.6 BUN/Creatinine Ratio 7.6 Random Glucose 117 mg/dl Calcium Level 9.0 mg/dl Lipase 788 U/L Assessment and Plan This is a 76 year old male with a PMH of HTN, HLD, hx. of prostate CA, hx. of pancreatitis secondary to gallstones s/p cholecystectomy - presents with epigastric abdominal pain radiating to the back - found to have acute pancreatitis Acute Pancreatitis 04/09 lipase elevated at around ~ 700 pain is improved nausea improved will advance diet if tolerating lunch - can d/c home later today (04/09) 04/08 unsure of etiology; has a hx. of this issue due to gallstones s/p cholecystectomy lipase is not elevated will start on clears - continue for today continue lactated ringer's advance in AM (04/09) if pain controlled and tolerating PO diet - can d/c home on 04/09 HTN continue home medications gave an extra dose of Cozaar 25mg DVT ppx Lovenox FULL CODE
[2017-04-09 13:12] VITALS: BP 143/77
[2017-04-09] MEDS ORDERED: SNK PO (13:27)
[2017-04-09] MEDS ORDERED: CLC100 PO (13:27)
[2017-04-09] MEDS ORDERED: ULT50X PO (13:27)
[2017-04-09 13:33] VITALS: BP 143/77; PULSE 66; TEMP 36.4; O2SAT 95
--- NOTE | 2017-04-09 13:36 | Discharge Instructions ---
Discharge Instructions Date of Service Apr 09, 2017. Admission Reason for Admission: Pancreatitis Discharge Discharge Diagnosis / Problem: Acute Pancreatitis Discharge Goals Goal(s): Decrease discomfort, Improve function, Diagnostic testing, Therapeutic intervention Activity Recommendations Activity Limitations: resume your previous activity Driving or Machine Use: no driving if taking Tramadol . Instructions / Follow-Up Instructions / Follow-Up Please follow up with Dr. Weiner on April 14 at 12:45PM You will be given Tramadol - only use this as needed Current Hospital Diet Patient's current hospital diet: AHA Diet (Heart Healthy), Low Fat Diet Discharge Diet Recommended Diet: AHA Diet (Heart Healthy), Low Fat Diet Pending Studies Studies pending at discharge: no Laboratory Results Hemoglobin A1c Test 04/07/17 21:15 Range/Units Estimated Average Glucose 114 mg/dl Hemoglobin A1c 5.6 4.5-5.6 % Medical Emergencies . Who to Call and When: Medical Emergencies: If at any time you feel your situation is an emergency, please call 911 immediately. . Non-Emergent Contact Non-Emergency issues call your: Primary Care Provider . . "Provider Documentation" section prepared by Roxie Capellan. . VTE Core Measure Inpt VTE Proph given/why not?: Enoxaparin (Lovenox) [place] Drug Monitoring Program Search Results: patient reviewed within database (no prescriptions found)
--- NOTE | 2017-04-09 13:39 | Discharge Summary ---
Discharge Summary Date of Service Apr 09, 2017. Discharge Summary Admission Date: Apr 08, 2017 at 00:43 Discharge Date: Apr 09, 2017 Discharge Disposition: Home Principal Diagnosis: Acute Pancreatitis Medication Reconciliation New Medications: Docusate Sodium (Docusate Sodium) 100 Mg Cap 100 MG PO BID for 30 Days, #60 CAP Senna (Senna Lax) 8.6 Mg Tab 8.6 MG PO QAM for 30 Days, #30 TAB Tramadol HCl (Tramadol HCl) 50 Mg Tab 50 MG PO Q6H PRN for Pain for 5 Days, #20 TAB Continued Medications: Amlodipine Besylate (Norvasc) 5 Mg Tab 10 MG PO DAILY, TAB Aspirin (Aspirin Ec) 81 Mg Tab 81 MG PO DAILY Atorvastatin (Lipitor) 10 Mg Tab 10 MG PO DAILY, TAB Losartan Potassium (Cozaar) 50 Mg Tab 1 TAB PO DAILY for 30 Days, #30 TAB 5 Refills Ranitidine Hcl (Zantac) 75 Mg Tab 75 MG PO HS, TAB Admission Information HPI (per Admitting provider): In 2009 patient confinement for biliary pancreatitis. The patient underwent cholecystectomy 2 months later. Recent confinement 2012 for chest pain. Workup negative for ischemia. 2 nights ago patient developed achy epigastric pain going to the left back and shoulders after fatty food intake. Discomfort somewhat similar to pancreatitis episode in the past although first episode was more severe and mainly on the right side. Some nausea no emesis. Pain waxing waning. No fever no chills. Patient brought to the emergency room by family because of persistent discomfort. Denies all cold intake Physical Exam (per Admitting): General Appearance: + pertinent finding (slightly anxious, no respiratory distress) Head: normocephalic, + pertinent finding (old lip symmetry on talking) Eyes: + pertinent finding (pale palpebral conjunctivae, dry buccal mucosa) Neck: supple Respiratory/Chest: lungs clear Cardiovascular: regular rate, rhythm, + systolic murmur Abdomen/GI: + pertinent finding (minimal epigastric tenderness) Extremities/Musculoskelatal: non-tender Neurologic/Psych: alert Skin: + pallor Hospital Course This is a 76 year old male with a PMH of HTN, HLD, hx. of prostate CA, hx. of pancreatitis secondary to gallstones s/p cholecystectomy - presents with epigastric abdominal pain radiating to the back - found to have acute pancreatitis Acute Pancreatitis 04/09 lipase elevated at around ~ 700 pain is improved nausea improved will advance diet if tolerating lunch - can d/c home later today (04/09) 04/08 unsure of etiology; has a hx. of this issue due to gallstones s/p cholecystectomy lipase is not elevated will start on clears - continue for today continue lactated ringer's advance in AM (04/09) if pain controlled and tolerating PO diet - can d/c home on 04/09 HTN continue home medications gave an extra dose of Cozaar 25mg DVT ppx Lovenox FULL CODE Total time spent on discharge = 55 minutes This includes examination of the patient, discharge planning, medication reconciliation, and communication with other providers. Discharge Instructions Please follow up with Dr. Weiner on April 14 at 12:45PM You will be given Tramadol - only use this as needed
[2017-04-10] MEDS ORDERED: AMLODIPINE BESYLATE 5 MG TAB PO SCH (08:00)
== END 2017-04-09 14:10 | disposition home or self-care (01) | DRG 440 ==
LOC: C.EDB 20:29 → C.4E 04-08 00:43 → ENRESERV 04-08 01:50
PROVIDERS: ADMIT Family Medicine; ATTEND Family Medicine
DX: K85.90 Acute pancreatitis without necrosis or infection, unspecified (principal); I10 Essential (primary) hypertension; E78.5 Hyperlipidemia, unspecified; Z79.82 Long term (current) use of aspirin; Z90.49 Acquired absence of other specified parts of digestive tract; Z87.891 Personal history of nicotine dependence; Z85.46 Personal history of malignant neoplasm of prostate